=== PATIENT | male | born 1985 | race Caucasian/White ===

== ENCOUNTER 2022-12-22 08:53 | Emergency (ER) | payer SELFPAY ==
[2022-12-22 10:22] LABS: CORONAVIRUS COVID-19 NAA NEGATIVE (NEGATIVE); INFLUENZA A NAA NEGATIVE (NEGATIVE); RESPIRATORY SYNCYTIAL VIR NAA NEGATIVE (NEGATIVE)
== END 2022-12-22 10:55 | disposition home or self-care (01) ==
LOC: JD.ED 08:53
DX: U07.1 COVID-19 (principal); F17.210 Nicotine dependence, cigarettes, uncomplicated
CPT/HCPCS: 0241U; 99284; 99283

== ENCOUNTER 2023-09-27 08:56 | Emergency (ER) | payer BC ==
[2023-09-27 10:28] LABS: CORONAVIRUS COVID-19 NAA NEGATIVE (NEGATIVE); INFLUENZA A NAA NEGATIVE (NEGATIVE)
[2023-09-27] MEDS: Ondansetron 4 MG Tab.DIS PO ONE (10:38)
== END 2023-09-27 11:15 | disposition home or self-care (01) ==
LOC: JD.ED 08:56
DX: K52.9 Noninfective gastroenteritis and colitis, unspecified (principal); F17.210 Nicotine dependence, cigarettes, uncomplicated
CPT/HCPCS: 0240U; 99284; A9270

== ENCOUNTER 2023-11-06 08:56 | Emergency (ER) | payer BC | END 2023-11-06 10:05 | disposition home or self-care (01) | LOC: JD.ED 08:56 | DX: K60.5 Anorectal fistula (principal) | CPT/HCPCS: 99282 ==